=== PATIENT | female | born 1990 | race Asian ===

== ENCOUNTER → 2016-12-11 04:55 | Emergency (ER) | payer OTHER ==
[~2016-12-11 04:55] MED LIST: Amoxicillin/Clavulanate TAB* 875 MG PO ONE; Azithromycin TAB* 250 MG PO ONE; Tetan/Diph/Pertus SYR(Tdap)* 0.5 ML SYR(BOOSTRIX) use SYR IM ONE; cefTRIAXone VIAL(*) 250 MG VIAL IM ONE
[2016-12-11 05:12] VITALS: BP 139/85
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
== END | disposition home or self-care (01) ==
LOC: ED 04:55
DX: T76.21XA Adult sexual abuse, suspected, initial encounter (principal)
CPT/HCPCS: 36415; 86803; 87340; 90715; 99284; A9270-GY; J0696